=== PATIENT | male | born 1945 | race Hispanic/Latino ===

== ENCOUNTER → 2020-07-28 | Day surgery (SDC) | payer MEDICARE, OTHER ==
[2020-07-24 16:08] LABS: BASOPHILS % 0.3 % (0.0-1.0); EOSINOPHILS # (AUTO) 0.1 (0.0-0.4); EOSINOPHILS % 1.8 % (0.0-6.0); HEMOGLOBIN 14.5 g/dL (14.0-18.0); LYMPHOCYTES # (AUTO) 1.6 (1.0-3.2); LYMPHOCYTES % 25.9 % (18.0-39.1); MEAN CORPUSCULAR HEMOGLOBIN 31.3 pg (28-32); MEAN CORPUSCULAR HGB CONC 33.7 g/dL (31-35); MEAN CORPUSCULAR VOLUME 92.9 fL (81-99); MONOCYTES # (AUTO) 0.7 (0.2-0.8); MONOCYTES % 11.5 % (4.4-11.3); NEUTROPHILS # (AUTO) 3.7 (2.1-6.9); NEUTROPHILS % 60.3 % (38.7-80.0); PLATELET COUNT 215 x10e3/uL (140-360); RED BLOOD COUNT 4.63 x10e6/uL (4.3-5.7); RED CELL DISTRIBUTION WIDTH 13.1 % (11.7-14.4)
[2020-07-24 16:20] LABS: ANION GAP 13.9 mmol/L (8-16); BLOOD UREA NITROGEN 14 mg/dL (7-26); BUN/CREATININE RATIO 17 (6-25); CALCIUM 8.3 mg/dL (8.4-10.2); CARBON DIOXIDE 22 mmol/L (22-29); CHLORIDE 107 mmol/L (98-107); CREATININE, SERUM 0.82 mg/dL (0.72-1.25); EST GLOMERULAR FILTRATION RATE > 60 ML/MIN (60-); GLUCOSE 87 mg/dL (74-118); POTASSIUM 3.9 mmol/L (3.5-5.1); SODIUM 139 mmol/L (136-145)
--- NOTE | 2020-07-24 16:52 | Diagnostic Imaging Report ---
Exam: CHEST 2 VIEWS Date: 07/24/2020 4:47 PM INDICATION: ^PRE-OP Comparison: None FINDINGS: Lines/Tubes:None Lungs:The lungs are well inflated. No focal consolidation or pulmonary edema. Trace linear scarring is noted at the left lung base. Pleura:No pleural effusion. No pneumothorax. Heart/Mediastinum:The cardiomediastinal silhouette is normal in size and contour. Bones/Soft Tissues: No acute osseous abnormality. Mild multilevel degenerative changes of the spine are noted. Upper abdomen: Unremarkable. IMPRESSION: Negative for acute intrathoracic process. Signed by: David Huitron MD on 07/24/2020 4:48 PM
[~2020-07-28] MED LIST: BUPIVACAINE 0.25%/EPI 30ML SDV INJ ONE; DEXAMETHASONE SOD PHOS INJ 4 MG/ML VIAL ONE; FENTANYL CITRATE/PF 100MCG/2 ML INJ ONE; FINASTERIDE5 MG PO; FLOMAX0.4 MG PO; GLYCOPYRROLATE INJ 0.2 MG/ML VIAL ONE; LIDOCAINE HCL 2% LOCAL INJ 5 ML SDV VIAL INJ ONE; MIDAZOLAM HCL 2 MG/2 ML VIAL ONE; NEOSTIGMINE 1 MG/ML 10ML VIAL ONE; ONDANSETRON HCL INJ 2MG/ML 2ML 2 MG/ML VIAL ONE; PROPOFOL IV EMULSION 10 MG/ML 20 ML VIAL ONE; ROCURONIUM BROMIDE 10 MG/ML 5ML VIAL IV ONE; SEVOFLURANE INHAL SOLN 250 ML PEN BTL ONE
--- NOTE | 2020-07-28 11:23 | Operative Report ---
DATE OF PROCEDURE: 07/28/2020 SURGEON: Jaya Garces MD PREOPERATIVE DIAGNOSIS: Lipoma of the back. POSTOPERATIVE DIAGNOSIS: Lipoma of the back. PROCEDURE PERFORMED: Excision of the lipoma of the left lumbar region of the back. ANESTHESIA: General. ESTIMATED BLOOD LOSS: Minimal. DRAINS: None. COMPLICATIONS: None. INDICATION AND FINDINGS: The patient is a 75-year-old male, complains of soft tissue mass of the left lower back for several years. INTRAOPERATIVE FINDINGS: The patient had a lipoma of the left lumbar region. This lipoma was subfascial, contained a firm nodule in the midst of it. The lipoma measured about 5 cm in greatest dimension. DESCRIPTION OF PROCEDURE: With the patient lying on the operative table in the supine position, after administration of general anesthesia, he was prepped and draped for excision of lipoma of left lower back. He was placed in the right decubitus position with the left lumbar area up. The lipoma was palpated and an incision was made directly over the mass transversely. The incision was carried down through the skin, subcutaneous tissue, and then the lipoma was subfascial. Then, we incised the fascia, then dissected free the surrounding tissues from the lipoma, which was excised completely. Within the mass of the lipoma, there was a firm 1.5 cm nodule. After we excised all of the lipoma, we reapproximated the fascia. The best way that we could because part of it was taken with the lipoma, because it was adherent to the lipoma. Bleeding points were cauterized. We infiltrated the operative field with 0.25% Marcaine with epinephrine. We irrigated the wound. After verification, the sponge and instrument counts were pronounced correct. The wound was closed in layers using 2-0 Vicryl for the soft tissues, and the skin was closed using 3-0 silk. A 0.25% Marcaine with epinephrine was given as an incisional block too. The patient tolerated the procedure well, he was taken to recovery room in stable condition. Jaya Garces MD PJR/MODL /[id number]
[2020-07-28 12:15] VITALS: BP 148/84
== END | disposition home or self-care (01) ==
LOC: OR 06:23
PROVIDERS: ATTEND Surgery
DX: D17.79 Benign lipomatous neoplasm of other sites (principal); Z88.0 Allergy status to penicillin; Z01.810 Encounter for preprocedural cardiovascular examination; Z01.812 Encounter for preprocedural laboratory examination; Z01.818 Encounter for other preprocedural examination; Z11.59 Encounter for screening for other viral diseases
CPT/HCPCS: 21932; 36415; 71046; 80048; 85025; 88305; 88311; 93005; J1100; J2001; J2250; J2405; J2704; J2710; J3010; U0002; 88304